=== PATIENT | male | born 1955 | race Caucasian/White ===

== ENCOUNTER → 2021-04-20 | Outpatient (CLI) | payer BC ==
--- NOTE | 2021-04-21 11:18 | ECHOF ---
Referral Reason:R01.1 heart murmur MEASUREMENTS -------- HEIGHT: 177.8 cm WEIGHT: 96.2 kg BP: RVIDd: 3.7 cm (< 3.3) IVSd: 1.8 cm (0.6 - 1.1) LVIDd: 4.2 cm (3.9 - 5.3) LVPWd: 1.5 cm (0.6 - 1.1) IVSs: 2.4 cm LVIDs: 2.5 cm LVPWs: 1.9 cm LAESV Index (A-L): 28.96 ml/m Ao Diam: 4.5 cm (2.0 - 3.7) AV Cusp: 2.2 cm (1.5 - 2.6) MV EXCURSION: 16.432 mm (> 18.000) MV EF SLOPE: 24 mm/s (70 - 150) EPSS: 0.8 cm MV E Yunior: 0.58 m/s MV DecT: 208 ms MV A Yunior: 0.92 m/s MV E/A Ratio: 0.63 AV maxP.80 mmHg AV meanP.43 mmHg AR PHT: 757 ms RAP: 5.00 mmHg RVSP: 26.03 mmHg FINDINGS -------- Sinus rhythm. This was a technically adequate study. The left ventricular size is normal. There is severe concentric left ventricular hypertrophy. Ove rall left ventricular systolic function is normal with, an EF between 55 - 60 %. The diastolic fill ing pattern is normal for the age of the patient 13.43. The right ventricle is mildly enlarged. Normal LA size by volume 22+/-6 ml/m2. The right atrial size is normal. Interatrial and interventricular septum intact. There is moderate to severe aortic valve sclerosis. There is mild aortic regurgitation. There is moderate aortic stenosis present. The maximum velocity across the aortic valve is 2.82m/s. Peak/m solange gradient across the Aortic Valve is 31.80mmHg / 18.43mmHg. Aortic root dilated Can't exclude possible Bicuspid Aov. Possible Bicuspid AV Mild mitral regurgitation is present. Mild tricuspid regurgitation present. There is no evidence of pulmonary hypertension. The right v entricular systolic pressure, as measured by Doppler, is 26.03mmHg. Trace/mild (physiologic) pulmonic regurgitation. The aortic root and ascending aorta are dilated measuring up to (4.5 cm) . Normal inferior vena cava with normal inspiratory collapse consistent with estimated right atrial pre ssure of 5 mmHg. There is no pericardial effusion. CONCLUSIONS -------- 1. Sinus rhythm. 2. The left ventricular size is normal. 3. There is severe concentric left ventricular hypertrophy. 4. Overall left ventricular systolic function is normal with, an EF between 55 - 60 %. 5. The diastolic filling pattern is normal for the age of the patient 13.43 6. The right ventricle is mildly enlarged. 7. There is moderate to severe aortic valve sclerosis. 8. There is mild aortic regurgitation. 9. There is moderate aortic stenosis present. 10. The maximum velocity across the aortic valve is 2.82m/s. 11. Peak/mean gradient across the Aortic Valve is 31.80mmHg / 18.43mmHg. 12. Aortic root dilated 13. Can't exclude possible Bicuspid Aov. 14. Mild mitral regurgitation is present. 15. Mild tricuspid regurgitation present. 16. Trace/mild (physiologic) pulmonic regurgitation. 17. The aortic root and ascending aorta are dilated measuring up to (4.5 cm) . COAL INSPECTOR: Marianna Linton RDCS
== END | disposition home or self-care (01) ==
LOC: RADECHMAIN 13:41
PROVIDERS: ATTEND Family Medicine
DX: I35.0 Nonrheumatic aortic (valve) stenosis (principal)
CPT/HCPCS: 93306

== ENCOUNTER → 2021-05-30 | Outpatient (CLI) | payer BC ==
--- NOTE | 2021-05-30 21:02 | CT ---
EXAMINATION TYPE: CT angio thor/abd pel aorta DATE OF EXAM: 05/30/2021 COMPARISON: HISTORY: Thoracic AAA w/out rupture. Hx heart murmur CT DLP: 1689.5 mGycm Automated exposure control for dose reduction was used. CONTRAST: Performed with IV Contrast, patient injected with 100 mL of Isovue 370. FINDINGS: Aorta: There is an aneurysm of the ascending aorta measuring 5.1 cm in greatest dimension. Calcificat ion of the aortic valve suggested. Atherosclerotic change of the remaining portion of the aorta. Desc ending thoracic aorta and abdominal aorta of normal caliber with atherosclerotic changes. Ectasia of the iliac arteries. The lungs are clear. No focal pneumonia, pleural effusion or pneumothorax. No pathologic adenopathy. Coronary artery calcification noted. Heart is enlarged. Small hiatal hernia. There is a trace of bethanie cardial fluid. Liver spleen, pancreas, adrenal glands, and gallbladder demonstrate no abnormality. A single splenic granuloma incidentally noted No hydronephrosis or nephrolithiasis. There is a left renal lesion measuring 12 Hounsfield units and 2.7 cm compatible with simple cyst. No free fluid. Bowel gas pattern nonspecific with no obstruction. Appendix normal. Hypertrophic and d egenerative changes spine. Calcifications in the pelvis appear vascular. IMPRESSION: 1. THERE IS A 5.1 CM ASCENDING AORTIC ANEURYSM. 2. CARDIOMEGALY WITH CORONARY ARTERY CALCIFICATION.
== END | disposition home or self-care (01) ==
LOC: RADCTMAIN 18:39
PROVIDERS: ATTEND Internal Medicine
DX: I71.2 Thoracic aortic aneurysm, without rupture (principal); I25.10 Atherosclerotic heart disease of native coronary artery without angina pectoris; I51.7 Cardiomegaly
CPT/HCPCS: 71275; 74174; Q9967

== ENCOUNTER → 2023-04-17 | Outpatient (CLI) | payer MEDICARE ==
--- NOTE | 2023-04-17 22:00 | CT ---
EXAMINATION TYPE: CT lumbar spine wo con DATE OF EXAM: 04/17/2023 COMPARISON: None HISTORY: 67-year-old male lower back pain and down right side x6 months no injury TECHNIQUE: Contiguous axial scanning of the lumbar spine without IV contrast. Coronal and sagittal re constructions performed. CT DLP: 1312.4 mGycm Automated exposure control for dose reduction was used. FINDINGS: Vertebral body heights are preserved and alignment is maintained. Bridging anterior endplate spondylosis T10-T11. Partially bridging anterior endplate spondylosis L1-L2. Scattered mild facet arthropathy. No large focal disc herniation or significant spinal canal stenosis appreciated by CT. On the left, changes result in mild neural foraminal narrowing at L5-S1. On the right, there is mild neural foraminal narrowing at L5-S1. Mild degenerative change of the bilateral SI joints. * Small to moderate-sized hiatal hernia. * Partially visualized cyst within the left kidney measuring at least 3.8 cm * Ectatic lower descending thoracic aorta at 2.9 cm. IMPRESSION: 1. 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 2. SCATTERED MILD FACET ARTHROPATHY. CHANGES RESULT IN MILD BILATERAL NEUROFORAMINAL NARROWING AT L5- S1. 3. NO LARGE FOCAL DISC HERNIATION OR SIGNIFICANT SPINAL CANAL/NEUROFORAMINAL STENOSIS IS SEEN. 4. MILD BILATERAL SI JOINT OA.
== END | disposition home or self-care (01) ==
LOC: RADCTMAIN 12:26
PROVIDERS: ATTEND Family Medicine
DX: M51.36 Other intervertebral disc degeneration, lumbar region (principal); M47.815 Spondylosis without myelopathy or radiculopathy, thoracolumbar region; M99.74 Connective tissue and disc stenosis of intervertebral foramina of sacral region; M46.1 Sacroiliitis, not elsewhere classified
CPT/HCPCS: 72131